=== PATIENT | male | born 1975 | race African-American/Black ===

== ENCOUNTER 2023-04-04 18:52 | Emergency (ER) | payer SELFPAY | END 2023-04-04 19:21 | LOC: ER 18:52 | DX: Z53.21 Procedure and treatment not carried out due to patient leaving prior to being seen by health care provider (principal) ==

== ENCOUNTER 2023-05-11 17:50 | Emergency (ER) | payer MEDICAID ==
[~2023-05-11] VITALS: Ht 188 cm; Wt 114.0 kg
[2023-05-11 18:03] VITALS: BP 132/84; PULSE 87; RESP 18; TEMP 98.5; O2SAT 99
== END 2023-05-11 23:35 | disposition left against medical advice (07) ==
LOC: ER 17:50
DX: H57.10 Ocular pain, unspecified eye (principal); Z53.21 Procedure and treatment not carried out due to patient leaving prior to being seen by health care provider
CPT/HCPCS: 99281

== ENCOUNTER 2023-06-06 18:07 | Emergency (ER) | payer MEDICAID, OTHER ==
[~2023-06-06] VITALS: Ht 182.9 cm; Wt 96.0 kg
[2023-06-06 18:08] VITALS: O2SAT 99
[2023-06-06] MEDS ORDERED: LEVETIRACETAM 500MG TABLET PO ONE (19:45)
[2023-06-06 20:14] LABS: BASOPHILS % 0.5 % (0.0-2.0); EOSINOPHILS % 0.2 % (0.0-5.0); HEMATOCRIT. 39.7 % (42.0-52.0); HEMOGLOBIN. 13.1 g/dL (14.0-18.0); LYMPHOCYTES % 21.6 % (20.0-50.0); MEAN CORPUSCULAR HEMOGLOBIN 27.9 pg (28.0-32.0); MEAN CORPUSCULAR HGB CONC 33.1 g/dL (31.0-37.0); MEAN CORPUSCULAR VOLUME 84.3 fL (80.0-94.0); MEAN PLATELET VOLUME 10.2 fl (7.4-10.4); MONOCYTES % 4.9 % (2.0-8.0); NEUTROPHILS % 72.8 % (40.0-76.0); PLATELET 126 x1000/uL (130-400); RED BLOOD CELL COUNT 4.71 mill/uL (4.7-6.1); RED CELL DISTRIBUTION WIDTH 14.1 % (11.6-14.6); WHITE BLOOD COUNT 7.3 x1000/uL (4.5-11.0)
[2023-06-06 20:24] LABS: CHLORIDE 116 mEq/L (98-107); INDEX HEMOLYSI 1 (1-3); INDEX ICTERIC 1 (1-4); INDEX LIPEMIC 1 (1-3); POTASSIUM 3.6 mEq/L (3.5-5.1); SODIUM 144 mEq/L (136-145)
[2023-06-06 20:33] LABS: ALANINE AMINOTRANSFERASE 18 IU/L (13-61); ALBUMIN 3.3 g/dL (3.4-5.0); ASPARTATE AMINOTRANSFERASE 16 IU/L (15-37); BILIRUBIN TOTAL 0.5 mg/dL (0.1-1.0); CALCIUM 7.5 mg/dL (8.5-10.1); CARBON DIOXIDE 22 mEq/L (21-32); CREATININE 0.9 mg/dL (0.6-1.3); GLUCOSE 85 mg/dL (70-105); PHOSPHORUS 2.3 mg/dL (2.5-4.9); PROTEIN TOTAL 6.7 g/dL (6.0-8.3); UREA NITROGEN BLOOD 9 mg/dL (7-21)
[2023-06-06 22:09] VITALS: TEMP 98.1
[2023-06-06 23:15] VITALS: BP 142/68; PULSE 71; RESP 18
== END 2023-06-06 23:17 | disposition home or self-care (01) ==
LOC: ER 18:07
DX: R56.9 Unspecified convulsions (principal); E83.39 Other disorders of phosphorus metabolism; E83.42 Hypomagnesemia
CPT/HCPCS: 80053; 83735; 84100; 85025; 36415; 99283; Z7610

== ENCOUNTER 2023-08-05 13:47 | Emergency (ER) | payer MEDICAID ==
[~2023-08-05] VITALS: Ht 182.9 cm; Wt 90.0 kg
[2023-08-05 13:57] VITALS: BP 130/90; PULSE 74; RESP 18; TEMP 98.8; O2SAT 98
[2023-08-05] MEDS ORDERED: LEVETIRACETAM 500MG PREMIX 100 ML IV ONE (14:30)
== END 2023-08-05 15:21 | disposition home or self-care (01) ==
LOC: ER 13:52
DX: G40.909 Epilepsy, unspecified, not intractable, without status epilepticus (principal); Z00.00 Encounter for general adult medical examination without abnormal findings
CPT/HCPCS: 99283

== ENCOUNTER 2023-08-21 13:50 | Emergency (ER) | payer MEDICAID ==
[~2023-08-21] VITALS: Ht 188 cm; Wt 127.0 kg
[2023-08-21 13:58] VITALS: RESP 16
[2023-08-21 13:59] VITALS: BP 147/99; PULSE 85; TEMP 98.7; O2SAT 98
== END 2023-08-21 16:09 | disposition left against medical advice (07) ==
LOC: ER 13:50
DX: R56.9 Unspecified convulsions (principal)
CPT/HCPCS: 99281

== ENCOUNTER 2023-11-12 18:46 | Emergency (ER) | payer MEDICAID ==
[~2023-11-12] VITALS: Ht 182.9 cm; Wt 113.0 kg
[2023-11-12 19:02] VITALS: O2SAT 96
[2023-11-12 19:44] LABS: BASOPHILS % 0.4 % (0.0-2.0); EOSINOPHILS % 0.1 % (0.0-5.0); HEMATOCRIT. 39.2 % (42.0-52.0); HEMOGLOBIN. 13.3 g/dL (14.0-18.0); LYMPHOCYTES % 9.1 % (20.0-50.0); MEAN CORPUSCULAR HEMOGLOBIN 28.6 pg (28.0-32.0); MEAN CORPUSCULAR HGB CONC 33.8 g/dL (31.0-37.0); MEAN CORPUSCULAR VOLUME 84.6 fL (80.0-94.0); MEAN PLATELET VOLUME 10.1 fl (7.4-10.4); MONOCYTES % 7.2 % (2.0-8.0); NEUTROPHILS % 83.2 % (40.0-76.0); PLATELET 129 x1000/uL (130-400); RED BLOOD CELL COUNT 4.63 mill/uL (4.7-6.1); RED CELL DISTRIBUTION WIDTH 13.6 % (11.6-14.6); WHITE BLOOD COUNT 9.4 x1000/uL (4.5-11.0)
[2023-11-12] MEDS: LEVETIRACETAM 500MG PREMIX 100 ML IV ONE (19:50)
[2023-11-12 19:58] LABS: ALANINE AMINOTRANSFERASE 19 IU/L (10-49); ALBUMIN 4.4 g/dL (3.2-4.8); ASPARTATE AMINOTRANSFERASE 29 IU/L (<34); BILIRUBIN TOTAL 0.8 mg/dL (0.1-1.0); CALCIUM 8.8 mg/dL (8.7-10.4); CARBON DIOXIDE 21 mEq/L (21-32); CHLORIDE 109 mEq/L (98-107); CREATININE 1.1 mg/dL (0.6-1.3); ETHANOL BLOOD < 10 mg/dL (<10); GLUCOSE 98 mg/dL (70-105); POTASSIUM 4.4 mEq/L (3.5-5.1); PROTEIN TOTAL 7.5 g/dL (6.0-8.3); SODIUM 137 mEq/L (136-145); UREA NITROGEN BLOOD 13 mg/dL (9-23)
[2023-11-12 20:23] LABS: CLARITY URINE CLEAR (CLEAR); COLOR URINE YELLOW (YELLOW); GLUCOSE URINE NEGATIVE (NEGATIVE); KETONES URINE NEGATIVE (NEGATIVE); LEUKOCYTE ESTERASE URINE 1+ (NEGATIVE); NITRITE URINE POSITIVE (NEGATIVE); OCCULT BLOOD URINE NEGATIVE (NEGATIVE); PH URINE 6.5 (4.5-8.0); PROTEIN URINE NEGATIVE (NEGATIVE); SPECIFIC GRAVITY URINE 1.013 (1.005-1.030); UROBILINOGEN URINE 0.2 E.U./dL (0.2-1.0)
[2023-11-12 20:31] LABS: *AMPHETAMINES SCREEN URINE NEGATIVE (NEGATIVE); *BARBITURATES SCREEN URINE NEGATIVE (NEGATIVE); *BENZODIAZEPINES SCREEN URINE PRESUMPTIVE POSITIVE (NEGATIVE); *COCAINE SCREEN URINE NEGATIVE (NEGATIVE); CANNABINOID URINE SCREEN NEGATIVE (NEGATIVE); ECSTASY MDMA SCREEN URINE NEGATIVE (NEGATIVE); METHADONE URINE SCREEN Neg (NEGATIVE); OPIATES URINE SCREEN NEGATIVE (NEGATIVE); PHENCYCLIDINE URINE SCREEN NEGATIVE (NEGATIVE)
[2023-11-12 20:34] LABS: BACTERIA URINE TRACE; SQUAMOUS EPITHELIAL CELL URINE 1+ /lpf (RARE/1+)
[2023-11-12 20:55] VITALS: TEMP 98.7
[2023-11-12] MEDS ORDERED: CEFTRIAXONE 1GM/50ML 50 ML IV ONE (21:15)
[2023-11-12] MEDS ORDERED: LEVE1000 MT (21:35)
[2023-11-12] MEDS ORDERED: CEPH500C2 MT (21:35)
[2023-11-12 22:30] VITALS: BP 117/66; PULSE 75; RESP 14
== END 2023-11-12 22:31 | disposition home or self-care (01) ==
LOC: ER 18:46
DX: G40.89 Other seizures (principal); N39.0 Urinary tract infection, site not specified
CPT/HCPCS: 80053; 80305; 81003; 80320; 82962; 85025; 36415; 70450; 96365; 99285; J1953; Z7610 ×3; G0480

== ENCOUNTER 2023-11-27 18:45 | Emergency (ER) | payer MEDICAID ==
[~2023-11-27] VITALS: Ht 182.9 cm; Wt 100.0 kg
[~2023-11-27 18:45] MED LIST: CEPH500C2 MT; LEVE1000 MT
[2023-11-27 18:47] VITALS: O2SAT 98
[2023-11-27] MEDS: LEVETIRACETAM 500MG PREMIX 100 ML IV ONE ×2 (19:35→19:36)
[2023-11-27] MEDS: LACTATED RINGERS 1,000 ML IV SCH (19:36)
[2023-11-27 19:55] LABS: BASOPHILS % 0.3 % (0.0-2.0); EOSINOPHILS % 0.2 % (0.0-5.0); HEMATOCRIT. 42.9 % (42.0-52.0); HEMOGLOBIN. 14.1 g/dL (14.0-18.0); LYMPHOCYTES % 31.5 % (20.0-50.0); MEAN CORPUSCULAR HEMOGLOBIN 28.5 pg (28.0-32.0); MEAN CORPUSCULAR HGB CONC 32.9 g/dL (31.0-37.0); MEAN CORPUSCULAR VOLUME 86.8 fL (80.0-94.0); MEAN PLATELET VOLUME 10.5 fl (7.4-10.4); MONOCYTES % 5.3 % (2.0-8.0); NEUTROPHILS % 62.7 % (40.0-76.0); PLATELET 151 x1000/uL (130-400); RED BLOOD CELL COUNT 4.94 mill/uL (4.7-6.1); RED CELL DISTRIBUTION WIDTH 13.8 % (11.6-14.6)
[2023-11-27 20:00] LABS: CHLORIDE 113 mEq/L (98-107); POTASSIUM 4.6 mEq/L (3.5-5.1); SODIUM 144 mEq/L (136-145)
[2023-11-27 20:01] LABS: CARBON DIOXIDE 23 mEq/L (21-32)
[2023-11-27 20:02] LABS: CALCIUM 9.2 mg/dL (8.7-10.4)
[2023-11-27 20:06] LABS: CREATININE 1.2 mg/dL (0.6-1.3); GLUCOSE 102 mg/dL (70-105); UREA NITROGEN BLOOD 10 mg/dL (9-23)
[2023-11-27 20:08] LABS: ALANINE AMINOTRANSFERASE 18 IU/L (10-49); ALBUMIN 4.7 g/dL (3.2-4.8); ASPARTATE AMINOTRANSFERASE 25 IU/L (<34)
[2023-11-27 20:09] LABS: BILIRUBIN TOTAL 0.8 mg/dL (0.1-1.0); PROTEIN TOTAL 7.9 g/dL (6.0-8.3)
[2023-11-27 20:59] VITALS: BP 123/83; PULSE 18; RESP 63; TEMP 97.9
== END 2023-11-27 21:30 | disposition left against medical advice (07) ==
LOC: ER 18:45 → CANBEDREQ 11-29 16:30
DX: R56.9 Unspecified convulsions (principal)
CPT/HCPCS: 80053; 85025; 36415; 70450; 93005; 96365; 99285; J1953; Z7610 ×2

== ENCOUNTER 2024-03-21 19:49 | Emergency (ER) | payer MEDICAID ==
[~2024-03-21] VITALS: Ht 182.9 cm; Wt 95.0 kg
[2024-03-21 19:52] VITALS: BP 120/83; PULSE 84; RESP 16; TEMP 99.2; O2SAT 99
== END 2024-03-21 20:23 | disposition home or self-care (01) ==
LOC: ER 19:49
DX: R56.9 Unspecified convulsions (principal)
CPT/HCPCS: 82962; 99283

== ENCOUNTER 2024-06-10 16:19 | Inpatient (IN) | payer MEDICAID ==
[~2024-06-10] VITALS: Ht 182.9 cm; Wt 120.2 kg
[2024-06-10] MEDS: SODIUM CHLORIDE 0.9% 1,000 ML IV ONE ×2 (17:12→19:13)
[2024-06-10 17:21] LABS: HEMATOCRIT. 33.7 % (42.0-52.0); HEMOGLOBIN. 11.3 g/dL (14.0-18.0); MEAN CORPUSCULAR HEMOGLOBIN 27.9 pg (28.0-32.0); MEAN CORPUSCULAR HGB CONC 33.7 g/dL (31.0-37.0); MEAN CORPUSCULAR VOLUME 82.8 fL (80.0-94.0); MEAN PLATELET VOLUME 11.2 fl (7.4-10.4); PLATELET 58 x1000/uL (130-400); RED BLOOD CELL COUNT 4.07 mill/uL (4.7-6.1); RED CELL DISTRIBUTION WIDTH 13.8 % (11.6-14.6); WHITE BLOOD COUNT 14.1 x1000/uL (4.5-11.0)
[2024-06-10 17:24] LABS: DIFFERENTIAL COMMENT 1
[2024-06-10 17:36] LABS: INR 1.1; PROTHROMBIN TIME 12.1 sec (9.6-11.0)
[2024-06-10 17:51] LABS: CHLORIDE 103 mEq/L (98-107); PLATELET ESTIMATE DECREASED; SODIUM 134 mEq/L (136-145)
[2024-06-10 17:52] LABS: CARBON DIOXIDE 14 mEq/L (21-32)
[2024-06-10 17:53] LABS: CALCIUM 7.8 mg/dL (8.7-10.4)
[2024-06-10 17:58] LABS: GLUCOSE 85 mg/dL (70-105); UREA NITROGEN BLOOD 92 mg/dL (9-23)
[2024-06-10 17:59] LABS: ALANINE AMINOTRANSFERASE 102 IU/L (10-49); ALBUMIN 3.5 g/dL (3.2-4.8); ASPARTATE AMINOTRANSFERASE 99 IU/L (<34)
[2024-06-10 18:00] LABS: BILIRUBIN DIRECT 0.3 mg/dL (<=3.0); BILIRUBIN TOTAL 0.7 mg/dL (0.1-1.0); PROTEIN TOTAL 6.5 g/dL (6.0-8.3)
[2024-06-10 18:04] LABS: CREATININE 5.9 mg/dL (0.6-1.3); POTASSIUM 2.3 mEq/L (3.5-5.1)
[2024-06-10] MEDS: POTASSIUM CHLORIDE 20MEQ TABLET SR PO ONE (18:48)
[2024-06-10] MEDS: LEVETIRACETAM 500MG TABLET PO ONE (19:12)
[2024-06-10] MEDS: VALPROIC ACID 250MG CAPSULE PO ONE (19:12)
[2024-06-10] MEDS ORDERED: ONDANSETRON HCL 4MG/2ML INJ IV PRN (19:30)
[2024-06-10] MEDS ORDERED: LACTATED RINGERS 1,000 ML IV SCH (19:30)
[2024-06-10] MEDS ORDERED: ZOLPIDEM TARTRATE 5MG TABLET PO PRN (19:30)
[2024-06-10] MEDS ORDERED: LACTATED RINGERS 3,000 ML IV ONE (19:30)
[2024-06-10] MEDS ORDERED: MAGNESIUM/ALUMINUM HYDROXIDE/SIMETHICONE 30ML UDC PO PRN (19:30)
[2024-06-10] MEDS ORDERED: NITROGLYCERIN 0.4MG TABLET SL SL PRN (19:30)
[2024-06-10] MEDS ORDERED: CLONIDINE 0.1MG TABLET PO PRN (19:30)
[2024-06-10] MEDS ORDERED: IPRATROPIUM/ALBUTEROL 0.5-3(2.5)MG/3ML NEB NEB PRN (19:30)
[2024-06-10] MEDS ORDERED: GUAIFENESIN 200MG/10ML SUGAR FREE UDC PO PRN (19:30)
[2024-06-10] MEDS ORDERED: DOCUSATE SODIUM 100MG CAPSULE PO PRN (19:30)
[2024-06-10 19:39] LABS: CLARITY URINE CLEAR (CLEAR); COLOR URINE YELLOW (YELLOW); GLUCOSE URINE NEGATIVE (NEGATIVE); KETONES URINE NEGATIVE (NEGATIVE); LEUKOCYTE ESTERASE URINE TRACE (NEGATIVE); NITRITE URINE NEGATIVE (NEGATIVE); OCCULT BLOOD URINE 2+ (NEGATIVE); PH URINE 5.5 (4.5-8.0); PROTEIN URINE 1+ (NEGATIVE); SPECIFIC GRAVITY URINE 1.012 (1.005-1.030); UROBILINOGEN URINE 0.2 E.U./dL (0.2-1.0)
[2024-06-10] MEDS: POTASSIUM CHLORIDE 20MEQ TABLET SR PO NR (19:59)
[2024-06-10 20:00] LABS: BACTERIA URINE TRACE; SQUAMOUS EPITHELIAL CELL URINE FEW /lpf (RARE/1+)
[2024-06-10] MEDS: ENOXAPARIN 30MG/0.3ML SYR SUBCUT SCH (20:00)
[2024-06-10] MEDS: KCL 20MEQ/100ML PREMIX 100 ML IV SCH (20:13)
[2024-06-10 21:35] LABS: IRON 20 ug/dL (65-175)
[2024-06-10 21:36] LABS: LDL CHOLESTEROL 39 mg/dL (5-100); TRIGLYCERIDE 164 mg/dL (0-150)
[2024-06-10 21:38] LABS: CHOLESTEROL 106 mg/dL (<200); HDL CHOLESTEROL < 20 mg/dL (>55)
[2024-06-10 21:40] LABS: T4 FREE 1.03 ng/dL (0.89-1.76)
[2024-06-10 21:41] LABS: THYROID STIMULATING HORMONE 0.76 uIU/mL (0.55-4.78)
[2024-06-10 21:53] LABS: TOTAL IRON BINDING CAPACITY > 670 ug/dl (250-425)
[2024-06-10] MEDS ORDERED: MEROPENEM 1,000 MG in SODIUM CHLORIDE 0.9% 100 ML IV SCH (22:00)
[2024-06-10] MEDS: LEVETIRACETAM 500MG TABLET PO SCH (22:16)
[2024-06-10 23:30] VITALS: BP 91/38; PULSE 89; RESP 16; RESP 18; TEMP 36.114; TEMP 37.252; O2SAT 0
[2024-06-11] MEDS: FAMOTIDINE 20MG TABLET PO SCH (00:34)
[2024-06-11] MEDS: MEROPENEM 500MG/50ML 50 ML IV SCH (00:49)
[2024-06-11 03:40] LABS: CHLORIDE 109 mEq/L (98-107); SODIUM 136 mEq/L (136-145)
[2024-06-11 03:41] LABS: CALCIUM 7.8 mg/dL (8.7-10.4); CARBON DIOXIDE 12 mEq/L (21-32)
[2024-06-11 03:46] LABS: GLUCOSE 95 mg/dL (70-105); UREA NITROGEN BLOOD 97 mg/dL (9-23)
[2024-06-11 03:47] LABS: CREATINE KINASE MB FRACTION 6.2 ng/mL (0.5-3.6)
[2024-06-11 03:59] LABS: CREATINE KINASE 1669 IU/L (46-171)
[2024-06-11 04:00] VITALS: BP 87/26; PULSE 79; RESP 18; TEMP 36.28068
[2024-06-11 04:43] LABS: CREATININE 5.1 mg/dL (0.6-1.3)
[2024-06-11 04:44] LABS: TROPONIN I HIGH SENSITIVITY 78 ng/L (3.0-53)
[2024-06-11] MEDS: POTASSIUM CHLORIDE 20MEQ TABLET SR PO NR ×2 (05:03→09:42)
[2024-06-11 06:12] LABS: CHLORIDE 109 mEq/L (98-107); POTASSIUM 3.1 mEq/L (3.5-5.1); SODIUM 137 mEq/L (136-145)
[2024-06-11 06:14] LABS: CREATINE KINASE MB FRACTION 5.3 ng/mL (0.5-3.6)
[2024-06-11 06:15] LABS: CARBON DIOXIDE 12 mEq/L (21-32)
[2024-06-11 06:20] LABS: CREATININE 4.7 mg/dL (0.6-1.3); GLUCOSE 99 mg/dL (70-105); UREA NITROGEN BLOOD 93 mg/dL (9-23)
[2024-06-11 06:21] LABS: ALANINE AMINOTRANSFERASE 90 IU/L (10-49)
[2024-06-11 06:22] LABS: ALBUMIN 3.1 g/dL (3.2-4.8); ASPARTATE AMINOTRANSFERASE 69 IU/L (<34)
[2024-06-11 06:23] LABS: BILIRUBIN TOTAL 0.6 mg/dL (0.1-1.0); PROTEIN TOTAL 6.1 g/dL (6.0-8.3)
[2024-06-11 06:25] LABS: PHOSPHORUS 4.1 mg/dL (2.5-4.9)
[2024-06-11 06:33] LABS: CREATINE KINASE 1470 IU/L (46-171)
[2024-06-11 07:20] LABS: BASOPHILS % 0.3 % (0.0-2.0); EOSINOPHILS % 0.1 % (0.0-5.0); HEMATOCRIT. 34.9 % (42.0-52.0); HEMOGLOBIN. 11.6 g/dL (14.0-18.0); LYMPHOCYTES % 9.4 % (20.0-50.0); MEAN CORPUSCULAR HEMOGLOBIN 27.4 pg (28.0-32.0); MEAN CORPUSCULAR HGB CONC 33.3 g/dL (31.0-37.0); MEAN CORPUSCULAR VOLUME 82.4 fL (80.0-94.0); MONOCYTES % 4.4 % (2.0-8.0); NEUTROPHILS % 85.8 % (40.0-76.0); PLATELET 64 x1000/uL (130-400); RED BLOOD CELL COUNT 4.23 mill/uL (4.7-6.1); RED CELL DISTRIBUTION WIDTH 13.9 % (11.6-14.6); WHITE BLOOD COUNT 14.6 x1000/uL (4.5-11.0)
[2024-06-11 07:50] LABS: TROPONIN I HIGH SENSITIVITY 70 ng/L (3.0-53)
[2024-06-11 08:00] VITALS: BP 97/69; PULSE 89; RESP 20; TEMP 36.114; O2SAT 100
[2024-06-11] MEDS ORDERED: POTASSIUM CHLORIDE 20 MEQ in DEXT 5% WATER 90 ML IV ONE (08:45)
[2024-06-11] MEDS: TAMSULOSIN HCL 0.4MG SR CAPSULE PO SCH (09:00)
[2024-06-11 11:43] LABS: FOLIC ACID (FOLATE) SERUM 15.34 ng/mL (>5.38)
[2024-06-11 11:44] LABS: VITAMIN B12 SERUM 1740 pg/mL (211-911)
[2024-06-11] MEDS: KCL 20MEQ/100ML PREMIX 100 ML IV NR (11:52)
[2024-06-11] MEDS: LACTATED RINGERS 1,000 ML IV ONE ×2 (11:52→15:48)
[2024-06-11 12:00] VITALS: BP 116/63; PULSE 85; RESP 20; TEMP 36.3918; O2SAT 100
[2024-06-11 12:37] LABS: *AMPHETAMINES SCREEN URINE NEGATIVE (NEGATIVE); *BARBITURATES SCREEN URINE NEGATIVE (NEGATIVE); *BENZODIAZEPINES SCREEN URINE NEGATIVE (NEGATIVE); *COCAINE SCREEN URINE NEGATIVE (NEGATIVE); METHADONE URINE SCREEN NEGATIVE (NEGATIVE); OPIATES URINE SCREEN NEGATIVE (NEGATIVE)
[2024-06-11 12:38] LABS: CANNABINOID URINE SCREEN NEGATIVE (NEGATIVE); ECSTASY MDMA SCREEN URINE NEGATIVE (NEGATIVE); PHENCYCLIDINE URINE SCREEN NEGATIVE (NEGATIVE)
[2024-06-11] MEDS: SODIUM BICARBONATE 100 MEQ in DEXTROSE 5% WATER 900 ML IV SCH (15:49)
[2024-06-11 16:00] VITALS: BP 109/59; PULSE 93; RESP 20; TEMP 36.61404; O2SAT 100
[2024-06-12] VITALS: BP 119/66; PULSE 80; RESP 18; TEMP 36.50292; O2SAT 93
[2024-06-12 04:00] VITALS: BP 95/65; PULSE 85; RESP 18; TEMP 35.72508; O2SAT 96
[2024-06-12] MEDS: LACTATED RINGERS 3,000 ML IV ONE (06:52)
[2024-06-12 08:00] VITALS: BP 113/56; PULSE 83; RESP 18; TEMP 37.00296; O2SAT 98
[2024-06-12 08:29] LABS: CHLORIDE 114 mEq/L (98-107); SODIUM 141 mEq/L (136-145)
[2024-06-12 08:30] LABS: CALCIUM 8.8 mg/dL (8.7-10.4); CARBON DIOXIDE 14 mEq/L (21-32)
[2024-06-12 08:35] LABS: CREATININE 3.4 mg/dL (0.6-1.3); GLUCOSE 116 mg/dL (70-105); UREA NITROGEN BLOOD 82 mg/dL (9-23)
[2024-06-12 08:37] LABS: CREATINE KINASE 271 IU/L (46-171); PHOSPHORUS 3.5 mg/dL (2.5-4.9)
[2024-06-12 12:00] VITALS: BP 116/76; PULSE 77; RESP 16; TEMP 36.61404; O2SAT 98
[2024-06-12 16:00] VITALS: BP 122/67; PULSE 77; RESP 18; TEMP 36.44736; O2SAT 97
[2024-06-12 20:00] VITALS: BP 116/59; PULSE 81; RESP 18; TEMP 38.00304; O2SAT 99
[2024-06-12] MEDS: ACETAMINOPHEN 325MG TABLET PO PRN (21:57)
[2024-06-13] VITALS: BP 101/52; PULSE 87; RESP 18; TEMP 36.114; O2SAT 94
[2024-06-13 04:00] VITALS: BP 122/71; PULSE 81; RESP 16; TEMP 36.33624; O2SAT 92
[2024-06-13 08:00] VITALS: BP 125/74; PULSE 81; RESP 20; TEMP 36.114; O2SAT 96
[2024-06-13 08:17] LABS: CALCIUM 7.8 mg/dL (8.7-10.4); CARBON DIOXIDE 17 mEq/L (21-32); CHLORIDE 111 mEq/L (98-107); SODIUM 139 mEq/L (136-145)
[2024-06-13 08:23] LABS: CREATININE 2.4 mg/dL (0.6-1.3); GLUCOSE 123 mg/dL (70-105); UREA NITROGEN BLOOD 63 mg/dL (9-23)
[2024-06-13 08:25] LABS: PHOSPHORUS 2.7 mg/dL (2.5-4.9)
[2024-06-13] MEDS ORDERED: LIDOCAINE HCL 1% 10 MG/ML 10ML VIAL ONE (09:18)
[2024-06-13 11:54] LABS: BASOPHILS % 0.4 % (0.0-2.0); EOSINOPHILS % 0.6 % (0.0-5.0); HEMATOCRIT. 34.2 % (42.0-52.0); HEMOGLOBIN. 11.2 g/dL (14.0-18.0); LYMPHOCYTES % 9.6 % (20.0-50.0); MEAN CORPUSCULAR HEMOGLOBIN 26.9 pg (28.0-32.0); MEAN CORPUSCULAR HGB CONC 32.7 g/dL (31.0-37.0); MEAN CORPUSCULAR VOLUME 82.4 fL (80.0-94.0); NEUTROPHILS % 77.4 % (40.0-76.0); RED BLOOD CELL COUNT 4.15 mill/uL (4.7-6.1); RED CELL DISTRIBUTION WIDTH 14.2 % (11.6-14.6)
[2024-06-13 12:00] VITALS: BP 113/61; PULSE 79; RESP 21; TEMP 36.78072; O2SAT 96
[2024-06-13 12:07] LABS: DIFFERENTIAL COMMENT 1
[2024-06-13 12:58] LABS: PLATELET 137 x1000/uL (130-400)
[2024-06-13 16:00] VITALS: BP 100/55; PULSE 85; RESP 20; TEMP 37.7808; O2SAT 96
[2024-06-13] MEDS: MEROPENEM 1G/100ML IV SCH (17:38)
[2024-06-13 20:00] VITALS: BP 118/81; PULSE 88; RESP 20; TEMP 37.2252; O2SAT 99
[2024-06-14] VITALS: BP 107/71; PULSE 82; RESP 20; TEMP 37.33632; O2SAT 96
[2024-06-14 04:00] VITALS: BP 103/63; PULSE 84; RESP 19; TEMP 37.16964; O2SAT 96
[2024-06-14 08:00] VITALS: BP 96/61; PULSE 79; RESP 18; TEMP 37.7808; O2SAT 100
[2024-06-14 12:00] VITALS: BP 112/61; PULSE 79; RESP 18; TEMP 36.6696; O2SAT 96
[2024-06-14 16:00] VITALS: BP 110/69; PULSE 85; RESP 18; TEMP 37.11408; O2SAT 97
[2024-06-14 20:00] VITALS: BP 99/59; PULSE 89; RESP 18; TEMP 36.44736; O2SAT 98
[2024-06-15] VITALS (11 sets, daily range): BP systolic 105–155; BP diastolic 56–101; PULSE 56–165; RESP 18–32; TEMP 36.114–37.00296; O2SAT 93–98
[2024-06-15] MEDS: SODIUM CHLORIDE 0.45% 1,000 ML IV SCH (07:00)
[2024-06-15 10:42] LABS: POTASSIUM 3.4 mEq/L (3.5-5.1)
[2024-06-15 10:44] LABS: CALCIUM 7.9 mg/dL (8.7-10.4)
[2024-06-15 10:46] LABS: BASOPHILS % 0.2 % (0.0-2.0); EOSINOPHILS % 0.6 % (0.0-5.0); HEMATOCRIT. 31.7 % (42.0-52.0); HEMOGLOBIN. 10.5 g/dL (14.0-18.0); LYMPHOCYTES % 14.3 % (20.0-50.0); MEAN CORPUSCULAR HEMOGLOBIN 27.4 pg (28.0-32.0); MEAN CORPUSCULAR HGB CONC 33.2 g/dL (31.0-37.0); MEAN CORPUSCULAR VOLUME 82.4 fL (80.0-94.0); MEAN PLATELET VOLUME 9.8 fl (7.4-10.4); NEUTROPHILS % 73.9 % (40.0-76.0); PLATELET 202 x1000/uL (130-400); RED BLOOD CELL COUNT 3.85 mill/uL (4.7-6.1); RED CELL DISTRIBUTION WIDTH 13.8 % (11.6-14.6); WHITE BLOOD COUNT 10.4 x1000/uL (4.5-11.0)
[2024-06-15 11:05] LABS: CREATININE 1.6 mg/dL (0.6-1.3)
[2024-06-15] MEDS: VALPROIC ACID 250MG CAPSULE PO SCH (18:02)
[2024-06-15] MEDS: LORAZEPAM 2MG/ML INJ IV NR (21:49)
[2024-06-15] MEDS ORDERED: LORAZEPAM 2MG/ML INJ IV PRN (21:52)
[2024-06-15] MEDS ORDERED: LEVETIRACETAM 1,000MG in NACL 100ML PREMIX IV SCH (22:00)
[2024-06-15] MEDS: MIDAZOLAM 100MG/100ML PMX 100 ML IV PRN (22:39)
[2024-06-15] MEDS: LEVETIRACETAM 1000MG PREMIX 100 ML IV SCH (23:03)
[2024-06-15] MEDS: SODIUM CHLORIDE 0.9% 1,000 ML IV SCH (23:28)
[2024-06-15] MEDS: PROPOFOL 10MG/ML 100ML 100 ML IV PRN (23:29)
[2024-06-16] VITALS (71 sets, daily range): BP systolic 77–140; BP diastolic 48–117; PULSE 70–124; RESP 1–51; TEMP 36.72516–37.7808; O2SAT 97–100
[2024-06-16 00:08] LABS: HEMATOCRIT 37.6 % (42.0-52.0); HEMOGLOBIN 12.1 g/dL (14.0-18.0); MEAN CORPUSCULAR HEMOGLOBIN 26.9 pg (28.0-32.0); MEAN CORPUSCULAR HGB CONC 32.1 g/dL (31.0-37.0); MEAN CORPUSCULAR VOLUME 83.7 fL (80.0-94.0); PLATELET 254 x1000/uL (130-400); RED CELL DISTRIBUTION WIDTH 14.4 % (11.6-14.6); WHITE BLOOD COUNT 20.6 x1000/uL (4.5-11.0)
[2024-06-16 00:20] LABS: CARBON DIOXIDE 23 mEq/L (21-32); CHLORIDE 106 mEq/L (98-107); POTASSIUM 3.5 mEq/L (3.5-5.1); SODIUM 137 mEq/L (136-145)
[2024-06-16 00:21] LABS: CALCIUM 8.2 mg/dL (8.7-10.4); INR 1.2; PROTHROMBIN TIME 13.4 sec (9.6-11.0)
[2024-06-16 00:25] LABS: CREATININE 1.3 mg/dL (0.6-1.3); GLUCOSE 184 mg/dL (70-105)
[2024-06-16 00:26] LABS: UREA NITROGEN BLOOD 23 mg/dL (9-23)
[2024-06-16 00:28] LABS: PHOSPHORUS 3.7 mg/dL (2.5-4.9)
[2024-06-16] MEDS ORDERED: PHENYLEPHRINE 100 MG in DEXT 5% WATER 240 ML IV PRN (01:15)
[2024-06-16 05:47] LABS: CALCIUM 8.3 mg/dL (8.7-10.4); CARBON DIOXIDE 23 mEq/L (21-32); CHLORIDE 106 mEq/L (98-107); POTASSIUM 3.5 mEq/L (3.5-5.1); SODIUM 139 mEq/L (136-145)
[2024-06-16 05:53] LABS: CREATININE 1.5 mg/dL (0.6-1.3); GLUCOSE 109 mg/dL (70-105); TRIGLYCERIDE 85 mg/dL (0-150); UREA NITROGEN BLOOD 23 mg/dL (9-23)
[2024-06-16 06:43] LABS: BASOPHILS % 0.2 % (0.0-2.0); EOSINOPHILS % 0.2 % (0.0-5.0); HEMATOCRIT. 33.7 % (42.0-52.0); HEMOGLOBIN. 10.9 g/dL (14.0-18.0); LYMPHOCYTES % 12.2 % (20.0-50.0); MEAN CORPUSCULAR HEMOGLOBIN 27.4 pg (28.0-32.0); MEAN CORPUSCULAR HGB CONC 32.5 g/dL (31.0-37.0); MEAN CORPUSCULAR VOLUME 84.3 fL (80.0-94.0); MEAN PLATELET VOLUME 9.9 fl (7.4-10.4); NEUTROPHILS % 78.4 % (40.0-76.0); PLATELET 227 x1000/uL (130-400); RED BLOOD CELL COUNT 3.99 mill/uL (4.7-6.1); RED CELL DISTRIBUTION WIDTH 14.2 % (11.6-14.6); WHITE BLOOD COUNT 16.2 x1000/uL (4.5-11.0)
[2024-06-16 09:27] LABS: BG BASE EXCESS 1.3 mmol/L (-2.0-3.0); BG CARBOXYHEMOGLOBIN 0.3 % (0.5-1.5); BG DEOXYHEMOGLOBIN 0.5 % (0.0-5.0); BG FRACTION INSPIRED OXYGEN 100; BG HCO3 ACT 23.9 mmol/L (21.0-28.0); BG METHEMOGLOBIN 0.3 % (0.5-1.5); BG OXYGEN SATURATION 99.5 % (94.0-98.0); BG OXYHEMOGLOBIN 98.9 % (94.0-98.0); BG PCO2 31.4 mmHg (35.0-48.0); BG PO2 299.8 mmHg (83.0-108.0); BG SAMPLE SITE RIGHT RADIAL; BG TOTAL HEMOGLOBIN 11.5 g/dL (13.5-17.5); BG VENT MODE VENT - AC
[2024-06-16] MEDS: LEVETIRACETAM 500MG PREMIX 100ML IV SCH (09:41)
[2024-06-16 09:42] LABS: CREATINE KINASE 109 IU/L (46-171)
[2024-06-16] MEDS: LEVETIRACETAM 1000MG PREMIX 100 ML IV SCH ×2 (21:22→21:28)
[2024-06-17] VITALS (100 sets, daily range): BP systolic 74–135; BP diastolic 29–104; PULSE 44–111; RESP 17–37; TEMP 36.3918–38.44752; O2SAT 98–100
[2024-06-17] MEDS ORDERED: PROPOFOL 10MG/ML 100ML 100 ML IV PRN (02:00)
[2024-06-17] MEDS: VALPROATE SODIUM 250MG/5ML UDC PO SCH (02:25)
[2024-06-17 04:44] LABS: CARBON DIOXIDE 22 mEq/L (21-32); CHLORIDE 111 mEq/L (98-107); POTASSIUM 3.9 mEq/L (3.5-5.1); SODIUM 141 mEq/L (136-145)
[2024-06-17 04:45] LABS: CALCIUM 7.9 mg/dL (8.7-10.4)
[2024-06-17 04:46] LABS: BASOPHILS % 0.4 % (0.0-2.0); EOSINOPHILS % 0.5 % (0.0-5.0); HEMATOCRIT. 33.6 % (42.0-52.0); HEMOGLOBIN. 11.1 g/dL (14.0-18.0); LYMPHOCYTES % 12.5 % (20.0-50.0); MEAN CORPUSCULAR HEMOGLOBIN 27.6 pg (28.0-32.0); MEAN CORPUSCULAR HGB CONC 33.1 g/dL (31.0-37.0); MEAN CORPUSCULAR VOLUME 83.5 fL (80.0-94.0); MEAN PLATELET VOLUME 9.3 fl (7.4-10.4); MONOCYTES % 8.6 % (2.0-8.0); PLATELET 288 x1000/uL (130-400); RED BLOOD CELL COUNT 4.02 mill/uL (4.7-6.1); WHITE BLOOD COUNT 14.2 x1000/uL (4.5-11.0)
[2024-06-17 04:50] LABS: CREATININE 1.3 mg/dL (0.6-1.3); GLUCOSE 93 mg/dL (70-105); UREA NITROGEN BLOOD 19 mg/dL (9-23)
[2024-06-17] MEDS: PROPOFOL 10MG/ML 100ML 100 ML IV PRN (06:00)
[2024-06-17] MEDS: PHENYLEPHRINE 100 MG in SODIUM CHLORIDE 0.9% 240 ML IV PRN (08:08)
[2024-06-17] MEDS: LEVETIRACETAM 3,000 MG in SODIUM CHLORIDE 0.9% 100 ML IV SCH (21:01)
[2024-06-18] VITALS (100 sets, daily range): BP systolic 94–135; BP diastolic 41–88; PULSE 76–112; RESP 0–32; TEMP 37.00296–38.00304; O2SAT 94–100
[2024-06-18] MEDS ORDERED: PROPOFOL 10MG/ML 100ML 100 ML IV PRN (02:45)
[2024-06-18] MEDS: PROPOFOL 10MG/ML 100ML 100 ML IV PRN (02:48)
[2024-06-18] MEDS: PHENYLEPHRINE 100 MG in DEXT 5% WATER 240 ML IV PRN (05:44)
[2024-06-18 06:19] LABS: BASOPHILS % 0.4 % (0.0-2.0); EOSINOPHILS % 0.7 % (0.0-5.0); HEMATOCRIT. 33.9 % (42.0-52.0); HEMOGLOBIN. 10.9 g/dL (14.0-18.0); LYMPHOCYTES % 11.9 % (20.0-50.0); MEAN CORPUSCULAR HGB CONC 32.2 g/dL (31.0-37.0); MEAN CORPUSCULAR VOLUME 83.9 fL (80.0-94.0); MEAN PLATELET VOLUME 9.7 fl (7.4-10.4); MONOCYTES % 5.5 % (2.0-8.0); NEUTROPHILS % 81.5 % (40.0-76.0); PLATELET 318 x1000/uL (130-400); RED BLOOD CELL COUNT 4.04 mill/uL (4.7-6.1); RED CELL DISTRIBUTION WIDTH 14.5 % (11.6-14.6); WHITE BLOOD COUNT 14.9 x1000/uL (4.5-11.0)
[2024-06-18 06:20] LABS: CALCIUM 8.3 mg/dL (8.7-10.4); CARBON DIOXIDE 21 mEq/L (21-32); CHLORIDE 112 mEq/L (98-107); POTASSIUM 4.9 mEq/L (3.5-5.1); SODIUM 143 mEq/L (136-145)
[2024-06-18 06:26] LABS: CREATININE 1.3 mg/dL (0.6-1.3); GLUCOSE 83 mg/dL (70-105); TRIGLYCERIDE 112 mg/dL (0-150); UREA NITROGEN BLOOD 16 mg/dL (9-23)
[2024-06-18 06:29] LABS: PHOSPHORUS 3.7 mg/dL (2.5-4.9)
[2024-06-18 12:21] LABS: BG BASE EXCESS -3.3 mmol/L (-2.0-3.0); BG CARBOXYHEMOGLOBIN 0.3 % (0.5-1.5); BG DEOXYHEMOGLOBIN 2.1 % (0.0-5.0); BG FRACTION INSPIRED OXYGEN 40; BG HCO3 ACT 19.9 mmol/L (21.0-28.0); BG METHEMOGLOBIN 0.3 % (0.5-1.5); BG OXYGEN SATURATION 97.9 % (94.0-98.0); BG OXYHEMOGLOBIN 97.3 % (94.0-98.0); BG PCO2 30.1 mmHg (35.0-48.0); BG PH 7.438 (7.350-7.450); BG SAMPLE SITE RIGHT RADIAL; BG TOTAL HEMOGLOBIN 11.6 g/dL (13.5-17.5); BG VENT MODE VENT - CPAP
[2024-06-18] MEDS: ACETAMINOPHEN 325MG TABLET PO PRN (17:38)
[2024-06-18] MEDS ORDERED: ENOXAPARIN 30MG/0.3ML SYR SUBCUT SCH (21:00)
[2024-06-18] MEDS: LEVETIRACETAM 1500MG PREMIX 100 ML IV SCH ×2 (21:35)
[2024-06-19] VITALS (35 sets, daily range): BP systolic 94–147; BP diastolic 44–90; PULSE 87–102; RESP 15–25; TEMP 36.22512–38.00304; O2SAT 91–98
[2024-06-19 08:12] LABS: CALCIUM 8.3 mg/dL (8.7-10.4); CHLORIDE 115 mEq/L (98-107); POTASSIUM 4.2 mEq/L (3.5-5.1); SODIUM 144 mEq/L (136-145)
[2024-06-19 08:13] LABS: CARBON DIOXIDE 22 mEq/L (21-32)
[2024-06-19 08:18] LABS: CREATININE 1.2 mg/dL (0.6-1.3); GLUCOSE 92 mg/dL (70-105); TRIGLYCERIDE 100 mg/dL (0-150); UREA NITROGEN BLOOD 17 mg/dL (9-23)
[2024-06-19] MEDS: LEVETIRACETAM 500MG/5ML CUP PO SCH (09:15)
[2024-06-19] MEDS: FAMOTIDINE 20MG TABLET PO SCH (09:16)
[2024-06-19] MEDS: ENOXAPARIN 30MG/0.3ML SYR SUBCUT SCH (09:16)
[2024-06-20] VITALS (12 sets, daily range): BP systolic 96–135; BP diastolic 54–108; PULSE 89–108; RESP 19–31; TEMP 36.114–38.78088; O2SAT 92–98
[2024-06-20 09:53] LABS: CARBON DIOXIDE 20 mEq/L (21-32); CHLORIDE 110 mEq/L (98-107); POTASSIUM 3.8 mEq/L (3.5-5.1); SODIUM 139 mEq/L (136-145)
[2024-06-20 09:55] LABS: CALCIUM 8.1 mg/dL (8.7-10.4)
[2024-06-20 09:59] LABS: CREATININE 1.4 mg/dL (0.6-1.3); GLUCOSE 141 mg/dL (70-105)
[2024-06-20 10:00] LABS: UREA NITROGEN BLOOD 15 mg/dL (9-23)
[2024-06-20] MEDS: SODIUM CHLORIDE 0.9% 1,000 ML IV SCH (17:54)
[2024-06-21] VITALS (13 sets, daily range): BP systolic 101–157; BP diastolic 58–117; PULSE 82–118; RESP 16–33; TEMP 37.11408–39.50316; O2SAT 92–99
[2024-06-21] MEDS: VANCOMYCIN 2,000 MG in DEXT 5% WATER 500 ML IV SCH (12:08)
[2024-06-21] MEDS: MEROPENEM 1G/100ML 100 ML IV SCH (14:08)
[2024-06-21 18:05] LABS: CLARITY URINE TURBID (CLEAR); COLOR URINE YELLOW (YELLOW); GLUCOSE URINE NEGATIVE (NEGATIVE); KETONES URINE NEGATIVE (NEGATIVE); LEUKOCYTE ESTERASE URINE 3+ (NEGATIVE); NITRITE URINE NEGATIVE (NEGATIVE); OCCULT BLOOD URINE 3+ (NEGATIVE); PROTEIN URINE 1+ (NEGATIVE); SPECIFIC GRAVITY URINE 1.015 (1.005-1.030)
[2024-06-21 18:56] LABS: BACTERIA URINE 3+; RBC URINE TNTC /hpf (0-2); SQUAMOUS EPITHELIAL CELL URINE FEW /lpf (RARE/1+); WBC URINE TNTC /hpf (0-2)
[2024-06-21] MEDS: VANCOMYCIN 750MG PMX (XELLIA) 150 ML IV SCH (21:36)
[2024-06-22] VITALS (12 sets, daily range): BP systolic 81–142; BP diastolic 54–94; PULSE 86–99; RESP 15–32; TEMP 36.33624–37.7808; O2SAT 93–98
[2024-06-22 06:07] LABS: CARBON DIOXIDE 24 mEq/L (21-32); CHLORIDE 106 mEq/L (98-107); POTASSIUM 4.4 mEq/L (3.5-5.1); SODIUM 137 mEq/L (136-145)
[2024-06-22 06:08] LABS: CALCIUM 8.1 mg/dL (8.7-10.4)
[2024-06-22 06:13] LABS: CREATININE 1.3 mg/dL (0.6-1.3); GLUCOSE 78 mg/dL (70-105); UREA NITROGEN BLOOD 12 mg/dL (9-23)
[2024-06-22 06:14] LABS: VALPROIC ACID 4.4 ug/mL (50-100)
[2024-06-22 06:15] LABS: CREATINE KINASE 84 IU/L (46-171)
[2024-06-22 06:18] LABS: ALANINE AMINOTRANSFERASE 38 IU/L (10-49); ALBUMIN 2.7 g/dL (3.2-4.8); ASPARTATE AMINOTRANSFERASE 27 IU/L (<34); BILIRUBIN DIRECT 0.3 mg/dL (<=3.0); BILIRUBIN TOTAL 0.6 mg/dL (0.1-1.0)
[2024-06-22 06:19] LABS: PROTEIN TOTAL 6.9 g/dL (6.0-8.3)
[2024-06-22 07:00] LABS: HEPATITIS B SURFACE ANTIGEN NEGATIVE (Negative)
[2024-06-22 07:11] LABS: HEPATITIS C AB NON REACTIVE (Neg) (Negative)
[2024-06-22 07:42] LABS: BASOPHILS % 1.3 % (0.0-2.0); EOSINOPHILS % 0.6 % (0.0-5.0); HEMATOCRIT. 31.2 % (42.0-52.0); HEMOGLOBIN. 10.1 g/dL (14.0-18.0); LYMPHOCYTES % 18.5 % (20.0-50.0); MEAN CORPUSCULAR HEMOGLOBIN 27.3 pg (28.0-32.0); MEAN CORPUSCULAR HGB CONC 32.3 g/dL (31.0-37.0); MEAN CORPUSCULAR VOLUME 84.6 fL (80.0-94.0); MEAN PLATELET VOLUME 9.6 fl (7.4-10.4); MONOCYTES % 10.8 % (2.0-8.0); NEUTROPHILS % 68.8 % (40.0-76.0); PLATELET 226 x1000/uL (130-400); RED BLOOD CELL COUNT 3.68 mill/uL (4.7-6.1); RED CELL DISTRIBUTION WIDTH 13.5 % (11.6-14.6); WHITE BLOOD COUNT 7.1 x1000/uL (4.5-11.0)
[2024-06-23] VITALS (12 sets, daily range): BP systolic 86–147; BP diastolic 65–90; PULSE 75–96; RESP 16–27; TEMP 37.16964–38.892; O2SAT 84–99
[2024-06-23 06:26] LABS: HEMATOCRIT. 29.5 % (42.0-52.0); HEMOGLOBIN. 9.6 g/dL (14.0-18.0); MEAN CORPUSCULAR HEMOGLOBIN 27.7 pg (28.0-32.0); MEAN CORPUSCULAR HGB CONC 32.6 g/dL (31.0-37.0); MEAN CORPUSCULAR VOLUME 85.2 fL (80.0-94.0); MEAN PLATELET VOLUME 9.1 fl (7.4-10.4); PLATELET 208 x1000/uL (130-400); RED BLOOD CELL COUNT 3.46 mill/uL (4.7-6.1); RED CELL DISTRIBUTION WIDTH 13.7 % (11.6-14.6); WHITE BLOOD COUNT 6.6 x1000/uL (4.5-11.0)
[2024-06-23 06:34] LABS: DIFFERENTIAL COMMENT 1
[2024-06-23 06:37] LABS: CHLORIDE 107 mEq/L (98-107); POTASSIUM 3.9 mEq/L (3.5-5.1); SODIUM 135 mEq/L (136-145)
[2024-06-23 06:38] LABS: CALCIUM 8.2 mg/dL (8.7-10.4); CARBON DIOXIDE 24 mEq/L (21-32)
[2024-06-23 06:43] LABS: CREATININE 1.2 mg/dL (0.6-1.3); GLUCOSE 85 mg/dL (70-105); UREA NITROGEN BLOOD 10 mg/dL (9-23)
[2024-06-23 17:08] LABS: PLATELET ESTIMATE NORMAL
[2024-06-23] MEDS: CEFTRIAXONE 1GM/50ML 50 ML IV SCH (17:30)
[2024-06-24] VITALS (12 sets, daily range): BP systolic 102–149; BP diastolic 67–89; PULSE 84–101; RESP 16–35; TEMP 36.22512–37.83636; O2SAT 95–99
[2024-06-24 11:52] LABS: BASOPHILS % 1.1 % (0.0-2.0); EOSINOPHILS % 0.5 % (0.0-5.0); HEMATOCRIT. 25.8 % (42.0-52.0); HEMOGLOBIN. 8.4 g/dL (14.0-18.0); LYMPHOCYTES % 22.9 % (20.0-50.0); MEAN CORPUSCULAR HEMOGLOBIN 27.4 pg (28.0-32.0); MEAN CORPUSCULAR HGB CONC 32.6 g/dL (31.0-37.0); MEAN CORPUSCULAR VOLUME 84.1 fL (80.0-94.0); MEAN PLATELET VOLUME 9.2 fl (7.4-10.4); MONOCYTES % 13.1 % (2.0-8.0); NEUTROPHILS % 62.4 % (40.0-76.0); PLATELET 206 x1000/uL (130-400); RED BLOOD CELL COUNT 3.07 mill/uL (4.7-6.1)
[2024-06-24 11:55] LABS: INR 1.3
[2024-06-24 12:02] LABS: CHLORIDE 107 mEq/L (98-107); SODIUM 136 mEq/L (136-145)
[2024-06-24 12:03] LABS: CARBON DIOXIDE 22 mEq/L (21-32)
[2024-06-24 12:04] LABS: CALCIUM 7.9 mg/dL (8.7-10.4)
[2024-06-24 12:09] LABS: CREATININE 1.1 mg/dL (0.6-1.3); GLUCOSE 90 mg/dL (70-105); UREA NITROGEN BLOOD 12 mg/dL (9-23)
[2024-06-25] VITALS (12 sets, daily range): BP systolic 111–142; BP diastolic 75–82; PULSE 80–94; RESP 11–25; TEMP 36.22512–38.0586; O2SAT 86–98
[2024-06-25 08:05] LABS: CALCIUM 7.8 mg/dL (8.7-10.4); CARBON DIOXIDE 21 mEq/L (21-32); CHLORIDE 108 mEq/L (98-107); POTASSIUM 4.7 mEq/L (3.5-5.1); SODIUM 136 mEq/L (136-145)
[2024-06-25 08:10] LABS: GLUCOSE 89 mg/dL (70-105); UREA NITROGEN BLOOD 9 mg/dL (9-23)
[2024-06-25 08:22] LABS: HEMATOCRIT. 28.9 % (42.0-52.0); HEMOGLOBIN. 9.2 g/dL (14.0-18.0); MEAN CORPUSCULAR HEMOGLOBIN 27.3 pg (28.0-32.0); MEAN CORPUSCULAR HGB CONC 31.7 g/dL (31.0-37.0); MEAN PLATELET VOLUME 9.6 fl (7.4-10.4); PLATELET 179 x1000/uL (130-400); RED BLOOD CELL COUNT 3.36 mill/uL (4.7-6.1); RED CELL DISTRIBUTION WIDTH 13.4 % (11.6-14.6); WHITE BLOOD COUNT 5.6 x1000/uL (4.5-11.0)
[2024-06-25 08:36] LABS: CREATININE 1.3 mg/dL (0.6-1.3)
[2024-06-25 08:56] LABS: DIFFERENTIAL COMMENT 1
[2024-06-26] VITALS: PULSE 95; RESP 24; TEMP 37.16964
[2024-06-26 04:00] VITALS: PULSE 89; TEMP 37.2252; TEMP 37.22520
[2024-06-26 07:25] LABS: PLATELET ESTIMATE NORMAL
[2024-06-26 10:00] VITALS: BP 126/74; PULSE 81; RESP 19
[2024-06-26 12:00] VITALS: PULSE 81; RESP 20
[2024-06-26 13:47] VITALS: TEMP 99.7
[2024-06-26 14:02] LABS: CHLORIDE 107 mEq/L (98-107); POTASSIUM 4.6 mEq/L (3.5-5.1); SODIUM 137 mEq/L (136-145)
[2024-06-26 14:03] LABS: CALCIUM 7.7 mg/dL (8.7-10.4); CARBON DIOXIDE 21 mEq/L (21-32)
[2024-06-26 14:08] LABS: CREATININE 1.1 mg/dL (0.6-1.3); GLUCOSE 89 mg/dL (70-105); UREA NITROGEN BLOOD 9 mg/dL (9-23)
== END 2024-06-26 17:13 | disposition home or self-care (01) | DRG 720 ==
LOC: ER 16:19 → EDBEDREQ 18:22 → 8WST 18:47 → EDBEDREQTM 18:52 → EDBEDREQ 18:52 → MICUSO 06-15 22:33 → 5EST 06-19 14:00
PROVIDERS: ADMIT Internal Medicine; ATTEND Internal Medicine
PROC: 02HV33Z Insertion of Infusion Device into Superior Vena Cava, Percutaneous Approach (ICD-10-PCS; 2024-06-13)
PROC: B548ZZA Ultrasonography of Superior Vena Cava, Guidance (ICD-10-PCS; 2024-06-13)
PROC: 5A1945Z Respiratory Ventilation, 24-96 Consecutive Hours (ICD-10-PCS; 2024-06-15)
PROC: 0BH17EZ Insertion of Endotracheal Airway into Trachea, Via Natural or Artificial Opening (ICD-10-PCS; 2024-06-15)
PROC: 4A00X4Z Measurement of Central Nervous Electrical Activity, External Approach (ICD-10-PCS; principal; 2024-06-24)
DX: A41.51 Sepsis due to Escherichia coli [E. coli] (principal); N17.0 Acute kidney failure with tubular necrosis; J96.01 Acute respiratory failure with hypoxia; R65.21 Severe sepsis with septic shock; J69.0 Pneumonitis due to inhalation of food and vomit; G93.41 Metabolic encephalopathy; E87.20 Acidosis, unspecified; G40.901 Epilepsy, unspecified, not intractable, with status epilepticus; J15.0 Pneumonia due to Klebsiella pneumoniae; D63.1 Anemia in chronic kidney disease; E83.39 Other disorders of phosphorus metabolism; E83.51 Hypocalcemia; E87.1 Hypo-osmolality and hyponatremia; M62.82 Rhabdomyolysis; E86.9 Volume depletion, unspecified; I12.9 Hypertensive chronic kidney disease with stage 1 through stage 4 chronic kidney disease, or unspecified chronic kidney disease; N18.9 Chronic kidney disease, unspecified; E87.6 Hypokalemia; N28.1 Cyst of kidney, acquired; D50.9 Iron deficiency anemia, unspecified; G93.89 Other specified disorders of brain; I82.531 Chronic embolism and thrombosis of right popliteal vein; E83.42 Hypomagnesemia; B96.20 Unspecified Escherichia coli [E. coli] as the cause of diseases classified elsewhere; D69.6 Thrombocytopenia, unspecified; R74.8 Abnormal levels of other serum enzymes; G35 Multiple sclerosis; E86.1 Hypovolemia; N13.6 Pyonephrosis; Z86.73 Personal history of transient ischemic attack (TIA), and cerebral infarction without residual deficits; Z90.49 Acquired absence of other specified parts of digestive tract; Z87.442 Personal history of urinary calculi
CPT/HCPCS: 31500; 36415; 36573; 36600; 70551; 71045; 74176; 76770; 80048; 80053; 80061; 80076; 80165; 80202; 80305; 81003; 82375; 82550; 82553; 82607; 82746; 82805; 82962; 83036; 83540; 83550; 83605; 83735; 84100; 84145; 84439; 84443; 84478; 84484; 85025; 85027; 85651; 86705; 87070; 87077; 87186; 87340; 92523; 92610; 93005; 93306; 93970; 94002; 94003; 97162; 97164; 97166; 97168; 97530; 99285; C1725; C1893; J0696; J1650; J1953; J2060; J2185; J2250; J2704; J3370; J3480; J3490; J7030; J7050; J7060; J7070

== ENCOUNTER 2024-09-20 06:32 | Emergency (ER) | payer MEDICAID ==
[~2024-09-20] VITALS: Ht 188 cm; Wt 124.0 kg
[2024-09-20 06:45] VITALS: BP 137/88; PULSE 75; RESP 18; TEMP 36.9; O2SAT 96
[2024-09-20] MEDS ORDERED: LEVETIRACETAM 1000MG PREMIX 100 ML IV ONE (07:15)
[2024-09-20 08:17] LABS: BASOPHILS % 0.7 % (0.0-2.0); EOSINOPHILS % 0.9 % (0.0-5.0); HEMATOCRIT. 39.4 % (42.0-52.0); HEMOGLOBIN. 13.2 g/dL (14.0-18.0); LYMPHOCYTES % 49.4 % (20.0-50.0); MEAN CORPUSCULAR HEMOGLOBIN 28.9 pg (28.0-32.0); MEAN CORPUSCULAR HGB CONC 33.6 g/dL (31.0-37.0); MEAN PLATELET VOLUME 9.1 fl (7.4-10.4); MONOCYTES % 9.6 % (2.0-8.0); NEUTROPHILS % 39.4 % (40.0-76.0); PLATELET 169 x1000/uL (130-400); RED BLOOD CELL COUNT 4.58 mill/uL (4.7-6.1); RED CELL DISTRIBUTION WIDTH 12.7 % (11.6-14.6); WHITE BLOOD COUNT 6.6 x1000/uL (4.5-11.0)
[2024-09-20 08:21] LABS: CARBON DIOXIDE 25 mEq/L (21-32); CHLORIDE 105 mEq/L (98-107); POTASSIUM 4.5 mEq/L (3.5-5.1); SODIUM 139 mEq/L (136-145)
[2024-09-20 08:22] LABS: CALCIUM 9.4 mg/dL (8.7-10.4)
[2024-09-20 08:26] LABS: CREATININE 1.1 mg/dL (0.6-1.3)
[2024-09-20 08:27] LABS: ETHANOL BLOOD < 10 mg/dL (<10); GLUCOSE 94 mg/dL (70-105); UREA NITROGEN BLOOD 15 mg/dL (9-23); VALPROIC ACID 43.7 ug/mL (50-100)
== END 2024-09-20 12:42 | disposition left against medical advice (07) ==
LOC: ER 06:32 → EDBEDREQTM 09:42 → EDBEDREQ 09:42 → ER 12:42
DX: R56.9 Unspecified convulsions (principal); Z79.899 Other long term (current) drug therapy
CPT/HCPCS: 36415; 80048; 80165; 80320; 85025; 99283; G0480

== ENCOUNTER 2025-01-24 03:24 | Emergency (ER) | payer MEDICAID ==
[~2025-01-24] VITALS: Ht 185.4 cm; Wt 123.0 kg
[2025-01-24 03:28] VITALS: O2SAT 97
[2025-01-24] MEDS: LORAZEPAM 2MG/ML INJ IV ONE (03:45)
[2025-01-24] MEDS: LEVETIRACETAM 1000MG PREMIX 100 ML IV ONE (03:57)
[2025-01-24] MEDS: ONDANSETRON HCL 4MG/2ML INJ IV STA (03:57)
[2025-01-24] MEDS: SODIUM CHLORIDE 0.9% 1,000 ML IV ONE (03:58)
[2025-01-24] MEDS: LORAZEPAM 2MG/ML UD SYRINGE ONE (04:16)
[2025-01-24 05:00] LABS: BASOPHILS % 0.5 % (0.0-2.0); EOSINOPHILS % 0.5 % (0.0-5.0); HEMATOCRIT. 38.1 % (42.0-52.0); HEMOGLOBIN. 12.6 g/dL (14.0-18.0); LYMPHOCYTES % 32.2 % (20.0-50.0); MEAN CORPUSCULAR HEMOGLOBIN 27.6 pg (28.0-32.0); MEAN CORPUSCULAR HGB CONC 33.1 g/dL (31.0-37.0); MEAN CORPUSCULAR VOLUME 83.3 fL (80.0-94.0); MEAN PLATELET VOLUME 9.6 fl (7.4-10.4); MONOCYTES % 9.1 % (2.0-8.0); NEUTROPHILS % 57.7 % (40.0-76.0); PLATELET 151 x1000/uL (130-400); RED BLOOD CELL COUNT 4.57 mill/uL (4.7-6.1); RED CELL DISTRIBUTION WIDTH 14.9 % (11.6-14.6); WHITE BLOOD COUNT 4.8 x1000/uL (4.5-11.0)
[2025-01-24 05:20] LABS: CHLORIDE 108 mEq/L (98-107); POTASSIUM 4.1 mEq/L (3.5-5.1); SODIUM 142 mEq/L (136-145)
[2025-01-24 05:21] LABS: CALCIUM 8.8 mg/dL (8.7-10.4); CARBON DIOXIDE 26 mEq/L (21-32)
[2025-01-24 05:26] LABS: CREATININE 1.1 mg/dL (0.6-1.3); GLUCOSE 102 mg/dL (70-105); UREA NITROGEN BLOOD 11 mg/dL (9-23)
[2025-01-24 07:14] VITALS: BP 139/76; PULSE 57; RESP 13; TEMP 36.7; O2SAT 99
== END 2025-01-24 08:09 | disposition left against medical advice (07) ==
LOC: ER 03:24 → EDBEDREQTM 04:47 → EDBEDREQ 04:47 → ENRESERV 06:37 → ER 08:09
DX: G40.909 Epilepsy, unspecified, not intractable, without status epilepticus (principal); Z79.899 Other long term (current) drug therapy
CPT/HCPCS: 80048; 82962; 83605; 85025; 36415; 71045; 70450; 93005; 96365; 96366; 96375; 99291; J1953; J2060; J2405; J7030; Z7610

== ENCOUNTER 2025-02-13 18:26 | Emergency (ER) | payer MEDICAID ==
[~2025-02-13] VITALS: Ht 185.4 cm; Wt 109.0 kg
[2025-02-13 18:40] VITALS: BP 161/102; PULSE 80; RESP 18; TEMP 36.9; O2SAT 96
[2025-02-13] MEDS ORDERED: LEVETIRACETAM 1000MG PREMIX 100 ML IV ONE (18:45)
[2025-02-13] MEDS ORDERED: VALPROIC ACID 250MG CAPSULE PO ONE (18:45)
== END 2025-02-13 19:14 | disposition left against medical advice (07) ==
LOC: ER 18:26
DX: R56.9 Unspecified convulsions (principal); Z79.899 Other long term (current) drug therapy
CPT/HCPCS: 99283

== ENCOUNTER 2025-04-26 15:03 | Emergency (ER) | payer MEDICAID ==
[~2025-04-26] VITALS: Ht 188 cm; Wt 118.0 kg
[2025-04-26 15:04] VITALS: O2SAT 99
[2025-04-26 16:09] LABS: BASOPHILS % 0.2 % (0.0-2.0); EOSINOPHILS % 0.2 % (0.0-5.0); HEMATOCRIT. 39.6 % (42.0-52.0); HEMOGLOBIN. 12.8 g/dL (14.0-18.0); LYMPHOCYTES % 12.3 % (20.0-50.0); MEAN PLATELET VOLUME 9.6 fl (7.4-10.4); MONOCYTES % 7.2 % (2.0-8.0); NEUTROPHILS % 80.1 % (40.0-76.0); PLATELET 149 x1000/uL (130-400); RED BLOOD CELL COUNT 4.71 mill/uL (4.7-6.1); RED CELL DISTRIBUTION WIDTH 13.7 % (11.6-14.6)
[2025-04-26 16:16] LABS: CREATININE 1.2 mg/dL (0.6-1.3); UREA NITROGEN BLOOD 15 mg/dL (9-23)
[2025-04-26 16:17] LABS: TROPONIN I HIGH SENSITIVITY < 4 ng/L (3.0-53)
[2025-04-26] MEDS: LORAZEPAM 2MG/ML UD SYRINGE IV SCH (16:36)
[2025-04-26] MEDS: SODIUM CHLORIDE 0.9% 1,000 ML IV ONE (16:37)
[2025-04-26 17:45] LABS: CLARITY URINE CLOUDY (CLEAR); COLOR URINE YELLOW (YELLOW); GLUCOSE URINE NEGATIVE (NEGATIVE); KETONES URINE NEGATIVE (NEGATIVE); LEUKOCYTE ESTERASE URINE 3+ (NEGATIVE); NITRITE URINE POSITIVE (NEGATIVE); OCCULT BLOOD URINE TRACE (NEGATIVE); PH URINE 6.5 (4.5-8.0); PROTEIN URINE NEGATIVE (NEGATIVE); SPECIFIC GRAVITY URINE 1.010 (1.005-1.030); UROBILINOGEN URINE 0.2 E.U./dL (0.2-1.0)
[2025-04-26] MEDS: LEVETIRACETAM 500MG PREMIX 100 ML IV ONE ×2 (17:49)
[2025-04-26 17:58] LABS: *AMPHETAMINES SCREEN URINE NEGATIVE (NEGATIVE); *BARBITURATES SCREEN URINE NEGATIVE (NEGATIVE); *BENZODIAZEPINES SCREEN URINE PRESUMPTIVE POSITIVE (NEGATIVE); *COCAINE SCREEN URINE NEGATIVE (NEGATIVE); METHADONE URINE SCREEN NEGATIVE (NEGATIVE)
[2025-04-26 17:59] LABS: CANNABINOID URINE SCREEN NEGATIVE (NEGATIVE); ECSTASY MDMA SCREEN URINE NEGATIVE (NEGATIVE); OPIATES URINE SCREEN NEGATIVE (NEGATIVE); PHENCYCLIDINE URINE SCREEN NEGATIVE (NEGATIVE)
[2025-04-26 18:03] LABS: BACTERIA URINE 3+; RBC URINE 0-2 /hpf (0-2); SQUAMOUS EPITHELIAL CELL URINE FEW /lpf (RARE/1+); WBC URINE 25-50 /hpf (0-2); YEAST URINE NONE SEEN
[2025-04-26] MEDS ORDERED: CEFTRIAXONE 1GM/50ML 50 ML IV ONE (18:45)
[2025-04-26 19:30] VITALS: BP 127/79; PULSE 89; RESP 20; TEMP 36.9; O2SAT 97
== END 2025-04-26 20:49 | disposition short-term general hospital (02) ==
LOC: ER 15:03 → EDBEDREQ 15:58 → ER 20:49 → CMPBEDREQ 04-27 08:21
DX: G40.909 Epilepsy, unspecified, not intractable, without status epilepticus (principal); N39.0 Urinary tract infection, site not specified; Z86.73 Personal history of transient ischemic attack (TIA), and cerebral infarction without residual deficits; Z79.899 Other long term (current) drug therapy
CPT/HCPCS: 80305; 80048; 81003; 80320; 85025; 84484; 36415; 70450; 93005; 96361; 96365; 96375; 99285; J1953; J0696; J2060; J7030; Z7610 ×2; G0480